=== PATIENT | male | born 1995 | race Two or more races ===

== ENCOUNTER 2019-06-13 16:55 | Emergency (ER) | payer OTHER ==
[~2019-06-13] VITALS: Ht 172.7 cm; Wt 81.6 kg
[2019-06-13 17:09] VITALS: BP 119/80
== END 2019-06-13 17:43 | disposition home or self-care (01) ==
LOC: ER 16:58
DX: R42 Dizziness and giddiness (principal); R51 Headache; Z88.0 Allergy status to penicillin; Z88.8 Allergy status to other drugs, medicaments and biological substances